=== PATIENT | female | born 1980 | race Hispanic/Latino ===

== ENCOUNTER 2019-02-21 14:25 | Outpatient (CLI) | payer OTHER ==
--- NOTE | 2019-02-21 15:52 | ULT ---
PELVIC ULTRASOUND WITH DOPPLER: 02/21/19 HISTORY: Exam requested for dating. FINDINGS: Single live intrauterine gestation is seen with measurements corresponding to an estimated gestationa l age of 7 weeks, 2 days and EVA at 10/08/2019. The crown-rump length measures 8.8 cm. heart rat e measures 138 beats per minute. A small subchorionic hemorrhage is seen. The uterus measures 11.8 x 5.6 x 6.5 cm. The right ovary measures 2.1 x 1.5 x 1.6 cm. Flow is demons trated in the right ovary. The left ovary is not visualized. IMPRESSION: 1. Single live intrauterine of 7 weeks, 2 days estimated gestational age and EVA at . 2. Small subchorionic hemorrhage. POS: [facility]
== END 2019-02-21 14:26 | disposition home or self-care (01) ==
LOC: BICULT 14:25
PROVIDERS: ATTEND Family Medicine
DX: Z34.81 Encounter for supervision of other normal pregnancy, first trimester (principal); Z3A.01 Less than 8 weeks gestation of pregnancy
CPT/HCPCS: 76856; 93976

== ENCOUNTER 2019-05-22 13:37 | Outpatient (CLI) | payer OTHER ==
--- NOTE | 2019-05-22 14:36 | ULT ---
EXAM: Obstetrical ultrasound greater than 14 weeks: HISTORY: Anatomy size and dates, cervical length COMPARISON: None. FINDINGS: Single viable intrauterine fetus is noted in breech presentation. heart rate equals 142 bpm. Placenta is posterior. Cervical length is 3.3 cm. Amniotic fluid is Within normal limits. anatomy: Visualized brain, 4 chamber heart, chest, three-vessel cord, cord insert, stomach, bladder, kid neys, spine, and extremity regions are unremarkable. biometry: BPD: 4.6 cm--20 weeks 0 days Head circumference: 17.1 cm--19 weeks 5 days Abdominal circumference: 14.5 cm--19 weeks 0 days Femur length:3.2 cm--20 weeks 0 days IMPRESSION: Gestational age by ultrasound: 20 weeks 0 days EVA by ultrasound: 10/09/2019 Estimated weight: 318 g
== END 2019-05-22 13:38 | disposition home or self-care (01) ==
LOC: BICULT 13:37
PROVIDERS: ATTEND Obstetrics & Gynecology
DX: O09.92 Supervision of high risk pregnancy, unspecified, second trimester (principal); Z3A.20 20 weeks gestation of pregnancy
CPT/HCPCS: 76805

== ENCOUNTER 2019-07-25 14:43 | Outpatient (CLI) | payer OTHER ==
--- NOTE | 2019-07-25 15:40 | ULT ---
OB ULTRASOUND: 07/25/19 HISTORY: growth. Correlation made to 05/22/19 exam. Intrauterine is 29 weeks, 1 day by ultrasound. BPD: 29 week, 2 day HC: 28 week, 6 day AC: 29 week, 6 day FL: 28 week, 3 day EFW: 1363 grams, 29 week, 4 day. Position: Vertex. Placenta: Posterior. Amniotic fluid: Within normal range. CALEB: 13.24 cm. heart rate: 138 beats per minute. Limited anatomy appears unremarkable. IMPRESSION: 29 week, 1 day gestational age by ultrasound. POS: OFF
== END 2019-07-25 14:44 | disposition home or self-care (01) ==
LOC: BICULT 14:43
PROVIDERS: ATTEND Obstetrics & Gynecology
DX: Z34.83 Encounter for supervision of other normal pregnancy, third trimester (principal); Z3A.29 29 weeks gestation of pregnancy
CPT/HCPCS: 76815

== ENCOUNTER 2019-08-17 08:21 | Day surgery (SDC) | payer OTHER ==
[2019-08-17 09:08] VITALS: TEMP 99; BMI 27.4
[2019-08-17] MEDS ORDERED: hydrALAZINE 20 MG/ML VIAL SLOW IVP PRN (09:35)
[2019-08-17 10:24] LABS: #Eosinphils 0.1 thou/uL (0.0-0.7); #Lymphocytes 1.7 thou/uL (1.20-3.40); #Monocytes 0.5 thou/uL (0.11-0.59); #Neutrophils 8.8 thou/uL (1.40-6.50); %Eosinophils 0.6 % (0.0-10.0); %Lymphocytes 15.2 % (21.0-51.0); %Monocytes 4.8 % (0.0-10.0); %Neutrophils 79.4 % (42.0-75.0); Hemoglobin 12.3 g/dL (12.0-16.0); Mean Corpuscular HGB CONC 33.7 g/dL (32.0-36.0); Mean Corpuscular Hemoglobin 29.9 pg (27.0-31.0); Mean Corpuscular Volume 88.7 fL (78.0-98.0); Mean Platelet Volume 8.3 fL (7.4-10.4); Platelet Count 165 thou/uL (130-400); RBC Distribution Width 11.9 % (11.5-14.5); White Blood Cell (WBC) Count 11.1 thou/uL (4.8-10.8)
[2019-08-17 10:45] LABS: ALT (SGPT) 15 U/L (8-55); AST (SGOT) 13 U/L (5-34); Albumin 3.5 g/dL (3.5-5.0); Alkaline Phosphatase 116 U/L (40-110); Anion Gap 6 mmol/L (10-20); BUN (Urea Nitrogen) 10 mg/dL (7.0-18.7); Bilirubin, Total 0.3 mg/dL (0.2-1.2); Calc. Creatinine Clearance 124 mL/min (70-130); Calcium 9.2 mg/dL (7.8-10.44); Carbon Dioxide 28 mmol/L (22-29); Chloride 108 mmol/L (98-107); Estimated GFR-MDRD Greater than 90; Globulin 2.4 g/dL (2.4-3.5); Glucose 73 mg/dL (70-105); Potassium 4.3 mmol/L (3.5-5.1); Protein, Total 5.9 g/dL (6.0-8.3); Sodium 138 mmol/L (136-145)
[2019-08-17] MEDS ORDERED: Famotidine 20 MG TAB PO SCH (21:00)
--- NOTE | 2019-08-20 08:40 | SS ---
DATE OF ADMISSION: 08/17/2019 DATE OF DISCHARGE: 08/17/2019 REGULAR PHYSICIAN: Valencia Kc MD EVALUATING PHYSICIAN: Antonio Trinidad MD. CHIEF COMPLAINT: Chest discomfort with radiation into her throat. HISTORY OF PRESENT ILLNESS: Ms. Oralia Goode is a 38-year-old G4, P2, with an estimated date of confinement of 10/09/2019, who presents complaining of discomfort in her upper chest that extends into her throat. She describes this as a burning sensation and denies radiation into her arm. She denies associated bleeding or ruptured membranes. Her care has been with Dr. Valencia Kc and she reports it has been uncomplicated. PAST OBSTETRICAL HISTORY: Includes 2 vaginal deliveries at term and an early miscarriage. PAST MEDICAL HISTORY: None. PAST SURGICAL HISTORY: None. CURRENT MEDICATIONS: vitamins. ALLERGIES: VICODIN WHICH SHE STATES GIVES HER TACHYCARDIA. SOCIAL HISTORY: Denies tobacco, alcohol, or drug use. FAMILY HISTORY: Unremarkable. REVIEW OF SYSTEMS: Denies nausea, vomiting, fever, chills, ruptured membranes, or vaginal bleeding. PHYSICAL EXAMINATION: VITAL SIGNS: 115/69, pulse 82. She is 99% saturated on room air. GENERAL: She is pleasant and in no acute distress. ABDOMEN: Soft, nontender, and gravid. heart rate tracing is stable. It is reassuring and there are no decelerations. No uterine activity is seen. LABORATORY DATA: White count 11.1, hemoglobin and hematocrit are 12.3 and 36.4 respectively, platelet count 165,000. Chemistries; sodium 138, potassium 4.3, chloride 108, carbon dioxide 28, BUN 10, creatinine 0.72, glucose 73, total bilirubin 0.3, AST and ALT are 13 and 15 respectively, alkaline phosphatase is 116. ASSESSMENT: 1. 32-week intrauterine . 2. Strongly suspect reflux as a cause of her symptoms today. PLAN: The patient was given a dose of Pepcid and was reassured. She also understands that she can use Pepcid [id number] 1-2 tablets twice a day. I have also told her I think this would be most helpful if she take it at night. She voices understanding of her discharge instructions and is sent home in good condition. Job ID: [id number]
== END 2019-08-17 11:20 | disposition home health service (06) ==
LOC: L&D/OP 08:21
PROVIDERS: ATTEND Obstetrics & Gynecology
DX: O99.89 Other specified diseases and conditions complicating pregnancy, childbirth and the puerperium (principal); R07.89 Other chest pain; O09.523 Supervision of elderly multigravida, third trimester; Z3A.32 32 weeks gestation of pregnancy; Z88.5 Allergy status to narcotic agent
CPT/HCPCS: 36415; 80053; 85025

== ENCOUNTER 2019-09-14 15:56 | Day surgery (SDC) | payer OTHER ==
[2019-09-14 16:59] VITALS: BP 123/71; TEMP 98.9; BMI 30.9
[2019-09-14] MEDS ORDERED: hydrALAZINE 20 MG/ML VIAL SLOW IVP PRN (17:49)
--- NOTE | 2019-09-14 18:23 | PRG ---
DATE OF SERVICE: 09/14/2019 PRIMARY OB: Dr. Valencia Kc at [facility]. CHIEF COMPLAINT: Abnormal heart tracing in the clinic. HISTORY OF PRESENT ILLNESS: The patient is a 38-year-old, G4, P2 female with an intrauterine at 36 weeks and 4 days, who was seen in clinic today by a nurse practitioner, Barbie Berumen who noted the fetus had a lower baseline than she was comfortable with and sent her here for further monitoring. The patient denies any obstetrical complaints or problems. Denies leakage of fluid or vaginal bleeding or abdominal pains. She denies any fever, fall, headache, chest pain, shortness of breath, nausea, vomiting, diarrhea, constipation, hip problems, knee problems, muscle weakness. She does have sciatica that she has been dealing with, this makes it difficult for her to move at times. Denies any new rashes, again vaginal bleeding or leakage of fluid or urinary urgency or frequency. PAST MEDICAL HISTORY: She is a carrier for polycystic disease. PAST SURGICAL HISTORY: She has had LEEP conization performed for history of NÉSTOR 2. SOCIAL HISTORY: Denies drug, alcohol, or tobacco use. ALLERGIES: NO KNOWN DRUG ALLERGIES. MEDICATIONS: vitamins. OB LABORATORY DATA: Blood type is A positive. Antibody screen is negative. RPR is nonreactive in the first and third trimester. HIV is nonreactive in the first and third trimester. Hepatitis B surface antigen is negative. She is rubella immune. GC and chlamydia negative. Her 1-hour Glucola is 105. She is GBS positive. REVIEW OF SYSTEMS: Per HPI. PHYSICAL EXAMINATION: VITAL SIGNS: Blood pressure is 123/71, heart rate of 80, respiratory rate of 18, saturating 99% on room air, temperature 98.9. GENERAL: She appears to be in no acute distress. She is alert, oriented, cooperative, and pleasant to interact with. HEAD: Normocephalic, atraumatic. LUNGS: Clear to auscultation bilaterally. HEART: Has regular rate and rhythm. ABDOMEN: Gravid and soft, nontender. EXTREMITIES: Nontender, nonedematous. : Has been deferred. heart tracing shows the fetus with a baseline of in the 120s with moderate long-term variability, positive 15 x 15 accelerations, tocometer showing occasional contractions. ASSESSMENT AND PLAN: The patient is a 38-year-old multiparous female with an intrauterine at 36 weeks and 4 days, sent for an abnormal heart tracing in clinic. Here, she has a reactive NST. Reassurance has been provided. The patient is being discharged to home. Job ID: [id number]
== END 2019-09-14 16:40 | disposition home or self-care (01) ==
LOC: L&D/OP 15:56
PROVIDERS: ATTEND Obstetrics & Gynecology
DX: O36.8330 Maternal care for abnormalities of the fetal heart rate or rhythm, third trimester, not applicable or unspecified (principal); O09.523 Supervision of elderly multigravida, third trimester; Z3A.36 36 weeks gestation of pregnancy
CPT/HCPCS: 59025; 99282

== ENCOUNTER 2019-09-25 05:30 | Inpatient (IN) | payer OTHER ==
[~2019-09-25 05:30] MED LIST: HYDROcodone/Acetaminophen 5/325 mg Tablet PO PRN
[2019-09-25] MEDS ORDERED: Bupivacaine PF 0.5% 30 ML VIAL ONE (09:37)
[2019-09-25] MEDS ORDERED: Butorphanol Tartrate 1 MG/ML VIAL SLOW IVP PRN (20:20)
[2019-09-25] MEDS ORDERED: hydrALAZINE 20 MG/ML VIAL SLOW IVP PRN (20:21)
[2019-09-25] MEDS ORDERED: Ibuprofen 800 MG TAB PO PRN (20:21)
[2019-09-25] MEDS ORDERED: Docusate 100 MG CAP PO PRN (20:21)
[2019-09-25] MEDS ORDERED: Ondansetron PF 4 MG/2 ML Vial IVP PRN (20:22)
[2019-09-25] MEDS ORDERED: NS / Oxytocin 40 units/1000ml 1,000 ML IV PRN (20:22)
[2019-09-25] MEDS ORDERED: Lidocaine 1% (PF) 30 ML VIAL SC PRN (20:22)
[2019-09-25] MEDS ORDERED: Promethazine HCl 25 MG/ML VIAL IM PRN (20:23)
[2019-09-25] MEDS ORDERED: NS w/ Oxytocin 10 units 500 ML IV SCH (20:30)
[2019-09-25] MEDS ORDERED: Lactated Ringer's 1,000 ML IV SCH (20:30)
[2019-09-25 20:53] VITALS: BMI 30.4
[2019-09-25] MEDS ORDERED: Penicillin G Potassium 5 MILL.UNITS VIAL ONE (21:42)
[2019-09-25 21:48] LABS: Hemoglobin 13.1 g/dL (12.0-16.0); Mean Corpuscular Hemoglobin 31.3 pg (27.0-31.0); Mean Corpuscular Volume 87.1 fL (78.0-98.0); Mean Platelet Volume 9.3 fL (7.4-10.4); Platelet Count 155 thou/uL (130-400); RBC Distribution Width 12.8 % (11.5-14.5); Red Blood Cell (RBC) Count 4.19 mill/uL (4.20-5.40)
[2019-09-25] MEDS ORDERED: Penicillin G Potassium 5 MILL.UNITS in Sodium Chloride 0.9% 100 ML IVPB SCH (22:00)
[2019-09-25 22:29] LABS: Syphilis Antibody Nonreactive (Nonreactive); Syphilis Antibody Index 0.02 S/CO (<1.00 Non-Reactive)
[2019-09-26] LABS: HBSAg Index 0.17 S/CO (0-0.99); Hep B Surf Ag Non-Reactive S/CO (NonReactive)
[2019-09-26] MEDS ORDERED: Acetaminophen 500 MG TAB PO PRN (00:45)
[2019-09-26] MEDS ORDERED: Fentanyl 4 mcg/Bup 0.1% Cadd 100 ML ONE (01:32)
[2019-09-26] MEDS ORDERED: Penicillin G 2.5 MILL.units 2.5 MILL.UNITS in Premix Bag 1 BAG IVPB SCH (02:00)
[2019-09-26] MEDS ORDERED: Acetaminophen 325 MG TAB PO PRN (02:10)
[2019-09-26] MEDS ORDERED: Naloxone HCl 0.4 mg/ml Vial IVP PRN ×2 (02:10)
[2019-09-26] MEDS ORDERED: Promethazine HCl 25 MG/ML VIAL IM PRN ×2 (02:10→14:34)
[2019-09-26] MEDS ORDERED: diphenhydrAMINE 50 MG/ML VIAL IVP PRN (02:10)
[2019-09-26] MEDS ORDERED: Ondansetron PF 4 MG/2 ML Vial IVP PRN ×3 (02:10→14:34)
[2019-09-26] MEDS ORDERED: ePHEDrine/0.9% NaCl/PF SYRINGE 50 mg/10 ml SLOW IVP PRN (02:10)
[2019-09-26] MEDS ORDERED: Lactated Ringer's 500 ML IV PRN (02:10)
[2019-09-26] MEDS ORDERED: Fentanyl 4 mcg/Bupivacaine 0.1% Cassette 100 ML EPIDURAL SCH (02:15)
[2019-09-26] MEDS ORDERED: Communication Order-Pharmacy FS SCH (02:15)
[2019-09-26] MEDS ORDERED: NS / Oxytocin 40 units/1000ml 1,000 ML IV SCH ×2 (03:00→14:34)
[2019-09-26] MEDS ORDERED: Lanolin Ointment 7 GM TUBE TOP PRN ×2 (03:00→14:34)
[2019-09-26] MEDS ORDERED: Benzocaine-Menthol 82.5 ML CAN TOP PRN ×2 (03:00→14:34)
[2019-09-26] MEDS ORDERED: Bisacodyl 10 MG SUPP PR PRN ×2 (03:00→14:34)
[2019-09-26] MEDS ORDERED: Milk Of Magnesia 30 ML UDCUP PO PRN ×2 (03:00→14:34)
[2019-09-26] MEDS ORDERED: hydrALAZINE 20 MG/ML VIAL SLOW IVP PRN ×2 (03:00→14:34)
[2019-09-26] MEDS ORDERED: Preparation H Ointment 28 GM TUBE PR PRN ×2 (03:00→14:34)
--- NOTE | 2019-09-26 04:11 | OP ---
DATE OF PROCEDURE: 09/26/2019 PREOPERATIVE DIAGNOSES: 1. Induction of labor for sciatica disruptive to quality of life. 2. Advanced maternal age. 3. Group B Streptococcus positive. 4. History of LEEP for abnormal Pap smear. POSTOPERATIVE DIAGNOSES: 1. Induction of labor for sciatica disruptive to quality of life. 2. Advanced maternal age. 3. Group B Streptococcus positive. 4. History of LEEP for abnormal Pap smear. 5. Live born female with Apgars of 9 and 9 at 1 and 5 minutes respectively. PROCEDURE PERFORMED: Spontaneous vaginal delivery. SPECIAL MEDICATION: Penicillin x2 doses for GBS prophylaxis. ANESTHESIA: Epidural. ESTIMATED BLOOD LOSS: 50 mL. QUANTITATIVE BLOOD LOSS: 23 mL. CLINICAL HISTORY: This patient is a 38-year-old Latin female, G4, P2-0-1-2, who had a course that was complicated by significant left hip pain secondary to sciatica that escalated to the . She also was noted to be GBS positive on her testing at 36 weeks and with advanced maternal age. The patient otherwise did well in her visits and was regular coming to her scheduled appointments. The patient was admitted the day of the induction at 38 weeks and 1 day secondary to her history of sciatica, which was disruptive to her mobility. She was 1.5 cm, about 90% effaced, and -3 station on admission. She had a penicillin that was started and amniotomy for clear fluid and continued to progress. Her initial concern or plan was to not have any medications for pain control. However, she requested an epidural and at the time of transition, she was 7 cm and was able to progress quickly to complete, and +1 station shortly thereafter. DESCRIPTION OF PROCEDURE: With good maternal effort, the patient was able to bring the vertex to position. She did have a category 2 tracing with variable decelerations. While pushing, a nuchal cord was noted after the head was delivered and this was reduced at the perineum. The anterior shoulder followed by the posterior shoulder followed by the remainder of the infant's body was delivered. Then, the cord was doubly clamped and cut by the father, and the was placed on maternal abdomen for continued care and stimulation. Cord blood was obtained. The placenta was gently guided out of the uterus intact with a three-vessel cord. Exploration of the vagina introitus and cervix noted no lacerations. The patient was given fundal massage and was noted to be firm and well below the umbilicus. The placenta was discarded as medical waste. All needle, sponge, lap, and instrument counts were correct x2 at the end of the procedure. The patient tolerated the procedure well and was able to recover in satisfactory condition in her Labor and Delivery room. A red rubber catheter was used to drain her bladder as she delivered shortly after her epidural for 240 mL of clear urine. Again, there were no other issues surrounding this delivery. Job ID: [id number]
[2019-09-26] MEDS: Ibuprofen 800 MG TAB PO SCH ×4 (06:49→22:05)
[2019-09-26] MEDS ORDERED: Ferrous Sulfate 325 MG TAB PO SCH (08:00)
[2019-09-26] MEDS ORDERED: Docusate Calcium (SURFAK) 240 MG CAP PO SCH (09:00)
[2019-09-26] MEDS ORDERED: Adacel (T-DAP) 0.5 ML SYRINGE IM ONE (09:00)
[2019-09-26] MEDS ORDERED: Prenatal Vitamin 1 TAB PO SCH (09:00)
[2019-09-26] MEDS ORDERED: traMADol HCl 50 MG TAB PO PRN ×2 (13:37)
[2019-09-26] MEDS ORDERED: diphenhydrAMINE 25 MG CAP PO PRN (14:34)
[2019-09-26] MEDS: Ferrous Sulfate 325 MG TAB PO SCH (17:31)
[2019-09-26] MEDS: Docusate Calcium (SURFAK) 240 MG CAP PO SCH (22:05)
[2019-09-27] MEDS: Ibuprofen 800 MG TAB PO SCH ×2 (06:14→14:36)
[2019-09-27] MEDS: Ferrous Sulfate 325 MG TAB PO SCH ×2 (08:26→17:19)
[2019-09-27] MEDS ORDERED: Prenatal Vitamin 1 TAB PO SCH (09:00)
[2019-09-27] MEDS: Docusate Calcium (SURFAK) 240 MG CAP PO SCH (09:08)
[2019-09-27 11:48] VITALS: BP 119/71; TEMP 97.5
== END 2019-09-27 19:40 | disposition home or self-care (01) | DRG 807 ==
LOC: L&D 20:19 → 3SW 09-26 16:44
PROVIDERS: ADMIT Obstetrics & Gynecology; ATTEND Obstetrics & Gynecology
PROC: 10E0XZZ Delivery of Products of Conception, External Approach (ICD-10-PCS; principal; 2019-09-26)
PROC: 10907ZC Drainage of Amniotic Fluid, Therapeutic from Products of Conception, Via Natural or Artificial Opening (ICD-10-PCS; 2019-09-26)
PROC: 3E0P7VZ Introduction of Hormone into Female Reproductive, Via Natural or Artificial Opening (ICD-10-PCS; 2019-09-26)
PROC: 3E033VJ Introduction of Other Hormone into Peripheral Vein, Percutaneous Approach (ICD-10-PCS; 2019-09-26)
DX: O75.89 Other specified complications of labor and delivery (principal); Z37.0 Single live birth; O99.824 Streptococcus B carrier state complicating childbirth; O76 Abnormality in fetal heart rate and rhythm complicating labor and delivery; O69.81X0 Labor and delivery complicated by cord around neck, without compression, not applicable or unspecified; M54.30 Sciatica, unspecified side; Z3A.38 38 weeks gestation of pregnancy
CPT/HCPCS: 36415; 85027; 86780; 86850; 86900; 86901; 87340; J2540; J2590; J3490; S0020

== ENCOUNTER 2020-03-20 10:58 | Emergency (ER) | payer OTHER ==
[2020-03-20] MEDS ORDERED: Aspirin Chewable 81 MG TAB ONE (11:36)
[2020-03-20 11:50] LABS: #Eosinphils 0.1 thou/uL (0.0-0.7); #Lymphocytes 1.6 thou/uL (1.20-3.40); #Monocytes 0.5 thou/uL (0.11-0.59); #Neutrophils 3.2 thou/uL (1.40-6.50); %Basophils 0.2 % (0.0-1.0); %Eosinophils 2.5 % (0.0-10.0); %Lymphocytes 29.4 % (21.0-51.0); %Monocytes 8.4 % (0.0-10.0); %Neutrophils 59.5 % (42.0-75.0); Hemoglobin 14.6 g/dL (12.0-16.0); Mean Corpuscular HGB CONC 33.8 g/dL (32.0-36.0); Mean Corpuscular Hemoglobin 29.6 pg (27.0-31.0); Mean Corpuscular Volume 87.5 fL (78.0-98.0); Mean Platelet Volume 8.4 fL (7.4-10.4); Platelet Count 188 thou/uL (130-400); RBC Distribution Width 11.9 % (11.5-14.5); Red Blood Cell (RBC) Count 4.93 mill/uL (4.20-5.40); White Blood Cell (WBC) Count 5.4 thou/uL (4.8-10.8)
[2020-03-20 12:00] LABS: BHCG - Serum Negative (NEGATIVE); Pregs Control Background? CLEAR/WHITE (CLR/WHITE); Pregs Control Bar Appear? YES (CONTROL BAR)
--- NOTE | 2020-03-20 12:21 | RAD ---
XR Chest 1 View Portable HISTORY: Chest pain COMPARISON: None FINDINGS: The heart size is normal. The lungs are well expanded without focal areas of consolidation, pneumothorax or pleural effusions. IMPRESSION: No radiographic evidence of acute cardiopulmonary process.
[2020-03-20 12:25] LABS: ALT (SGPT) 12 U/L (8-55); AST (SGOT) 11 U/L (5-34); Albumin 4.5 g/dL (3.5-5.0); Alkaline Phosphatase 92 U/L (40-110); Anion Gap 13 mmol/L (10-20); BUN (Urea Nitrogen) 12 mg/dL (7.0-18.7); Bilirubin, Total 0.6 mg/dL (0.2-1.2); Calc. Creatinine Clearance 0 mL/min (70-130); Calcium 9.2 mg/dL (7.8-10.44); Carbon Dioxide 26 mmol/L (22-29); Chloride 104 mmol/L (98-107); Estimated GFR-MDRD 80; Glucose 71 mg/dL (70-105); Lipase 9 U/L (8-78); Potassium 3.5 mmol/L (3.5-5.1); Protein, Total 7.5 g/dL (6.0-8.3); Sodium 139 mmol/L (136-145)
[2020-03-20] MEDS ORDERED: Ketorolac Tromethamine 30 MG/ML VIAL ONE (14:23)
[2020-03-20 16:32] LABS: Troponin I Less than 0.010 ng/mL (< 0.028)
== END 2020-03-20 16:45 | disposition home or self-care (01) ==
LOC: ERS 10:58
DX: R07.89 Other chest pain (principal)
CPT/HCPCS: 71045; 80053; 83690; 84484; 84703; 85025; 85379; 93005; 96374; J1885

== ENCOUNTER 2020-04-14 15:12 | Emergency (ER) | payer OTHER ==
[2020-04-15 14:40] LABS: SARS-CoV-2 MS2 Positive; SARS-CoV-2 N Gene Negative; SARS-CoV-2 S Gene Negative; SARS-CoV-2 orf1ab Negative
== END 2020-04-14 16:30 | disposition home or self-care (01) ==
LOC: ERS 15:12
DX: R05 Cough (principal); R51 Headache; R06.7 Sneezing; Z20.828 Contact with and (suspected) exposure to other viral communicable diseases
CPT/HCPCS: 87635; 99284; U0003

== ENCOUNTER 2020-07-01 12:08 | Emergency (ER) | payer OTHER ==
[2020-07-01 13:00] LABS: #Basophils 0.1 thou/uL (0.0-0.2); #Eosinphils 0.1 thou/uL (0.0-0.7); #Lymphocytes 1.8 thou/uL (1.20-3.40); #Monocytes 0.3 thou/uL (0.11-0.59); #Neutrophils 3.9 thou/uL (1.40-6.50); %Basophils 0.8 % (0.0-1.0); %Eosinophils 1.1 % (0.0-10.0); %Lymphocytes 28.6 % (21.0-51.0); %Monocytes 5.5 % (0.0-10.0); Hemoglobin 13.3 g/dL (12.0-16.0); Mean Corpuscular HGB CONC 34.6 g/dL (32.0-36.0); Mean Corpuscular Hemoglobin 30.1 pg (27.0-31.0); Mean Platelet Volume 8.4 fL (7.4-10.4); Platelet Count 191 thou/uL (130-400); RBC Distribution Width 11.1 % (11.5-14.5); Red Blood Cell (RBC) Count 4.43 mill/uL (4.20-5.40); White Blood Cell (WBC) Count 6.1 thou/uL (4.8-10.8)
[2020-07-01 13:19] LABS: ALT (SGPT) 31 U/L (8-55); AST (SGOT) 22 U/L (5-34); Albumin 3.8 g/dL (3.5-5.0); Alkaline Phosphatase 65 U/L (40-110); Anion Gap 12 mmol/L (10-20); BUN (Urea Nitrogen) 11 mg/dL (7.0-18.7); Bilirubin, Total 0.4 mg/dL (0.2-1.2); Calc. Creatinine Clearance 0 mL/min (70-130); Calcium 8.6 mg/dL (7.8-10.44); Carbon Dioxide 22 mmol/L (22-29); Chloride 106 mmol/L (98-107); Estimated GFR-MDRD 87; Globulin 2.4 g/dL (2.4-3.5); Glucose 95 mg/dL (70-105); Potassium 3.6 mmol/L (3.5-5.1); Protein, Total 6.2 g/dL (6.0-8.3); Sodium 136 mmol/L (136-145)
--- NOTE | 2020-07-01 13:38 | ULT ---
Obstetric sonogram first trimester HISTORY: Early . Pelvic pain. FINDINGS: Multiple transabdominal images show gestational sac in the endometrial cavity containing a small yolk sac and pole. Heart motion at 116 bpm. [place]-rump length correlates with 7 weeks 1 day gestational age. Estimated date of delivery based on today's sonogram 02/16/2021. 2 small lobular areas of fluid lie, each approximately 7 mm x 3 mm greatest diameters immediately wiley p to the chorion. No free fluid in the pelvis. A 2.3 cm corpus luteum noted in the right ovary. Good color and spectral Doppler flow in each ovary. IMPRESSION : Single intrauterine gestation. Estimated gestational age 7 weeks 1 day. Small amount of subchorionic hemorrhage.
[2020-07-01 13:46] LABS: Bilirubin Negative (Negative); Blood, Urine Negative (Negative); Clarity Clear (Clear); Glucose, Urine (Dipstick) Normal (Negative); Ketone, Urine 10 mg/dL (Negative); Leukocyte Negative Leu/uL (Negative); Nitrite Negative (Negative); Protein, Urine (Dipstick) Negative (Neg-Trace); Specific Gravity, Urine 1.011 (1.002-1.036); Urobilinogen Normal mg/dL (Less than 2); pH, Urine 6.5 (5.0-9.0)
[2020-07-03 23:00] LABS: Chlamydia by PCR Not Detected (NotDetected); GC by PCR Not Detected (NotDetected)
== END 2020-07-01 14:56 | disposition home or self-care (01) ==
LOC: ERS 12:08
DX: O20.8 Other hemorrhage in early pregnancy (principal); Z3A.01 Less than 8 weeks gestation of pregnancy
CPT/HCPCS: 36415; 76856; 80053; 81003; 84702; 85025; 86900; 86901; 87480; 87491; 87510; 87591; 87660; 93976